=== PATIENT | female | born 1990 | race Caucasian/White ===

== ENCOUNTER → 2018-02-19 | Day surgery (SDC) | payer OTHER ==
[~2018-02-19] MED LIST: ACETAMINOPHEN/HYDROcodone 325 MG/5 MG TAB ONE; BUPIVACAINE HCL PF 0.5% 10 ML VIAL ONE; KETOROLAC TROMETHAMINE 30 MG/ML (IVP) VIAL IV PUSH ONE; LACTATED RINGER'S 1000 ML INJ 1,000 ML ONE; MIDAZOLAM HCL 2 MG/2 ML VIAL ONE; MORPHINE SULFATE 4 MG/ML INJ ONE; NORE1TAB13 PO; NYSTCRE29 TOPICAL; ONDANSETRON HCL 4 MG/2 ML VIAL IV PUSH ONE; PROPOFOL 200 MG/20 ML AMP IV ONE; TRI-TAB PO; ceFAZolin 2 GM PREMIX 50 ML ONE
--- NOTE | 2018-02-19 18:57 | RADRPT ---
EXAM DATE: 02/19/2018 6:14 PM EDT AGE/SEX: 28 years / Female INDICATIONS: Right bunionectomy CLINICAL DATA: This is the patient's initial encounter. Patient reports that signs and symptoms have been present for 1 day and indicates a pain score of Nonresponsive. MEDICAL/SURGICAL HISTORY: None. None. COMPARISON: No prior exams available for comparison. FINDINGS: 3 films from the OR have been obtained. There is a surgical wire extending through the second digit. This appears to extend through the proximal, mid and distal phalanx. There is good alignment of this digit. There is a screw seen at the distal first metatarsal. There appears to be postsurgical change at the medial aspect of the first metatarsal from prior bunionectomy. CONCLUSION: Good placement of a surgical wire through the second digit. Electronically signed by: Adan Le MD 02/19/2018 6:55 PM EDT
--- NOTE | 2018-03-08 10:23 | MP ---
cc: Nighat Colvin DPM DATE OF OPERATION: 02/19/2018 DATE OF SURGERY: 02/19/2010. SURGEON: Nighat Colvin DPM ACCOUNT ASSISTANT: None. PREOPERATIVE DIAGNOSES: 1. Right foot hallux abductovalgus. 2. Right foot hammertoe deformity. POSTOPERATIVE DIAGNOSES: 1. Right foot hallux abductovalgus. 2. Right foot hammertoe deformity. PROCEDURE PERFORMED: 1. Right foot [employer] bunionectomy. 2. Right foot second digit PIPJ arthrodesis. PATHOLOGY SENT: None. ANESTHESIA: General. HEMOSTASIS: Pneumatic ankle tourniquet at 250 mmHg. ESTIMATED BLOOD LOSS: Less than 10 mL INJECTABLES: 10 mL of 0.5% Marcaine plain. COMPLICATIONS: None. MATERIALS USED: Include 3-0 cannulated screw and a 0.062 double ended K-wire, 3-0 Monocryl, 3-0 Prolene. INJECTABLES: 10 mL of 0.5% Marcaine plain. COMPLICATIONS: None. INDICATIONS: The patient is a 88-year-old female patient with painful right foot and hammertoe deformity. She has exhausted conservative efforts and has elected to move forward with surgical intervention at this time. The consent has been signed. The procedure was explained. No guarantees given. DESCRIPTION OF PROCEDURE: Under mild sedation, the patient was brought into the operating room, placed on the operating table in supine position. Following IV sedation, pneumatic ankle tourniquet was placed around the right ankle, was then scrubbed, prepped and draped in the usual aseptic manner. An Esmarch bandage was used to exsanguinate the right foot and attention was directed to the dorsal aspect of the first metatarsophalangeal joint where a linear longitudinal incision was created and deepened through skin and subcutaneous tissue, care being taken to identify and retract any vital neurovascular structures, deepened to the level of capsule in order to better visualize the joint. An oscillating saw was then used to remove the medial eminence of the first metatarsal and the bony aspect is removed from the field in total. The leg was then externally rotated and a Chevron bunionectomy was performed. The head of the first metatarsal was then put into a neutral position and the capital fragment was shifted laterally. Prior to the shifting of the fragment an adductor tendon release was performed at the first interspace and the hallux was put through range of motion. No tracking was noted. The capital fragment was then shifted laterally and confirmed under fluoroscopy. There was noted reduction in the first IM angle, as well as the clinical deformity. A K-wire was then placed from dorsal distal to plantar proximal to allow the insertion of a 3-0 cannulated screw. This was inserted across the osteotomy site and afforded excellent compression. The K-wire was removed and the hardware was checked under fluoroscopy and noted to be appropriate length and size and reduction was appropriately corrected as well. Attention was then directed to the dorsal aspect of the PIPJ where a similar incision was created. A transverse incision was then created through the extensor tendon in order to gain access to the PIPJ. Collateral ligaments were severed. The opposing cartilaginous surfaces of bone were removed using the oscillating saw. A 0.062 K-wire was then retrograde drilled through all 3 phalanges allowing coaptation at the PIPJ and rectus alignment was confirmed under fluoroscopy as well. Both areas were flushed with copious amounts of sterile saline. Deep and subcutaneous tissues were closed using 3-0 Monocryl. Skin was closed using 3-0 Prolene. Pneumatic ankle tourniquet was released. There was a prompt hyperemic response to all digits of the right foot. The patient tolerated the procedure and anesthesia well. 10 mL of 0.5% Marcaine plain were injected around the incision site. Sterile dressing of Adaptic, 4 x 4's, and a well-padded posterior splint were applied. The patient will recover in the PACU for a period of time before being discharged home with written and oral postoperative instructions. PING Mantilla/TL , 09:55 AM , 10:21 AM
== END | disposition home or self-care (01) ==
LOC: ESDC 07:42
PROVIDERS: ATTEND Podiatrist Foot & Ankle Surgery
DX: M20.11 Hallux valgus (acquired), right foot (principal); M20.41 Other hammer toe(s) (acquired), right foot
CPT/HCPCS: 01480; 28285; 28296; 73620; 76000; C1713; J0690; J1885; J2250; J2270; J2405; J3010; J7120